=== PATIENT | male | born 1985 | race Caucasian/White ===

== ENCOUNTER 2016-05-09 23:48 | Emergency (ER) | payer OTHER ==
[~2016-05-09 23:48] MED LIST: CEPH-264 PO; HYDR-2762 PO; LISI-334 PO
[2016-05-09 23:53] VITALS: BP 139/82
[2016-05-10] MEDS ORDERED: KETOROLAC TROMETHAMINE 60 MG/2 ML SYRINGE. IM ONE (01:15)
[2016-05-10] MEDS ORDERED: CYCLOBENZAPRINE 10 MG TABLET. PO ONE (01:15)
[2016-05-10] MEDS ORDERED: NAPR375T3 PO (01:47)
[2016-05-10] MEDS ORDERED: CYCL10TA2 PO (01:47)
--- NOTE | 2016-05-10 01:47 | PHYS DOC ---
Past Medical History Past Medical History: Hypertension, Other Additional Past Medical Histor: chronic lt. knee pain (r/t patellar dislocation ) Past Surgical History: Tonsillectomy, Other Additional Past Surgical Histo: rt. arm, rt middle finger Alcohol Use: Occasionally Drug Use: None Adult General Chief Complaint Chief Complaint: LOWER BACK PAIN OR INJURY HPI HPI Patient is a 31 year old male who presents with back pain. Patient reports she was caring a load of shingles knee twisted abnormally, causing him pain in his back. He reports pain in his mid and lower back. He denies any weakness. No loss of bowel or bladder continence. He has not taken anything for symptoms prior to arrival. Review of Systems Review of Systems Constitutional: Denies fever or chills Eyes: Denies change in visual acuity or eye pain HENT: Denies nasal congestion or sore throat Respiratory: Denies cough or shortness of breath Cardiovascular: Denies chest pain GI: Denies abdominal pain, nausea, vomiting, bloody stools or diarrhea : Denies dysuria or hematuria Musculoskeletal: Mid and lower back pain Integument: Denies rash or skin lesions Neurologic: Denies headache, focal weakness Current Medications Current Medications Current Medications Medications (Trade) Dose Ordered Sig/Theresa Start Time Stop Time Status Last Admin Dose Admin Cyclobenzaprine HCl (Flexeril) 10 mg 1X ONCE 05/10/16 01:15 05/10/16 01:16 DC 05/10/16 01:15 10 MG Ketorolac Tromethamine (Toradol Im) 30 mg 1X ONCE 05/10/16 01:15 05/10/16 01:16 DC 05/10/16 01:15 30 MG Allergies Allergies Allergies Coded Allergies Type Severity Reaction Last Updated Verified coconut oil Allergy Intermediate 05/10/16 No Physical Exam Physical Exam Constitutional: Well developed, well nourished, no acute distress, non-toxic appearance HENT: Normocephalic, atraumatic, bilateral external ears normal Eyes: EOMI, conjunctiva normal, no discharge Neck: Normal range of motion, no stridor Cardiovascular: Heart rate normal, regular rhythm, no murmur Lungs & Thorax: Bilateral breath sounds clear to auscultation Abdomen: Bowel sounds normal, soft, non-distended, no TTP Skin: Warm, dry, no erythema, no rash Back: Mid and lower back TTP both midline and to L lateral side; no skin lesion , no stepoff or deformity noted Extremities: No obvious deformity, no edema Neurologic: Alert and oriented X 3, BLE strength and sensation to light touch intact and symmetrical Current Patient Data Vital Signs Vital Signs Date Time Temp Pulse Resp B/P Pulse Ox O2 Delivery O2 Flow Rate FiO2 05/09/16 23:53 97.7 92 14 97 Room Air 97.7 EKG EKG [] Radiology/Procedures Radiology/Procedures X-ray thoracic spine (my read): No acute abnormality X-ray lumbar spine (my read): No acute abnormality Course & Med Decision Making Course & Med Decision Making Pertinent Labs and Imaging studies reviewed. (See chart for details) Patient is 31-year-old male who presents with back pain. Appears to have at least some component of muscle spasm, also possibility of bulging disc. Will obtain x-rays of thoracic and lumbar spine. Toradol and Flexeril ordered for pain control. Imaging without acute abnormality per my read. Discussed results with patient, who is feeling better after meds. Will discharge home with prescription for naproxen and Flexeril. Given instructions for follow-up and return precautions. Dragon Disclaimer Dragon Disclaimer This electronic medical record was generated, in whole or in part, using a voice recognition dictation system. Departure Departure Impression: Primary Impression: Back pain Additional Impression: Muscle spasm of back Disposition: 01 HOME, SELF-CARE Condition: IMPROVED Referrals: LARS GRAFF (PCP) Patient Instructions: Back Pain, Adult, Muscle Cramps Additional Instructions: Thank you for allowing us to provide care today in the Emergency Department. Take the provided medication as directed. Use caution when taking the muscle relaxant as it can make you drowsy. Schedule a follow up appointment with your primary care doctor. Return promptly to the Emergency Department if you develop any new or concerning symptoms. Scripts Cyclobenzaprine Hcl 10 Mg [id number] Mg PO TID PRN MUSCLE SPASMS #12 TAB Prov:VICENTE FIGUEROA MD 05/10/16 Naproxen 375 Mg [id number] Mg PO BID PRN PAIN #20 Prov:VICENTE FIGUEROA MD 05/10/16 Problem Qualifiers VICENTE FIGUEROA MD May 10, 2016 01:47
--- NOTE | 2016-05-10 07:41 | RAD ---
EXAM: Thoracic spine, 3 views. HISTORY: Pain. COMPARISON: None. FINDINGS: Oral, lateral and swimmer's views of the thoracic spine are obtained. There is mild thoracic dextroscoliosis centered at the upper thoracic levels. There is no listhesis. The vertebral bodies are normal in height and the disc spaces are preserved. There is a suspected small Schmorl's node within the upper thoracic superior endplate. IMPRESSION: 1. No acute osseous finding. 2. Mild thoracic dextroscoliosis.
--- NOTE | 2016-05-10 07:42 | RAD ---
EXAM: Lumbar spine, 3 views. HISTORY: Pain. COMPARISON: None. FINDINGS: Frontal, lateral and coned sacral views of the lumbar spine are obtained. There is no listhesis. The vertebral bodies are normal in height and the disc spaces are preserved. IMPRESSION: No acute osseous finding.
== END 2016-05-10 02:00 | disposition home or self-care (01) ==
LOC: ER 23:48
DX: M62.830 Muscle spasm of back (principal); M54.5 Low back pain; M54.6 Pain in thoracic spine; G89.29 Other chronic pain; I10 Essential (primary) hypertension; Z91.048 Other nonmedicinal substance allergy status
CPT/HCPCS: 72072; 72100; 96372; 99284; J1885

== ENCOUNTER → 2017-07-09 | Outpatient (CLI) | payer OTHER | END | disposition home or self-care (01) | LOC: ECHO 12:31 | DX: R00.2 Palpitations (principal); I10 Essential (primary) hypertension | CPT/HCPCS: 93017; 93350 ==

== ENCOUNTER 2017-10-20 15:55 | Emergency (ER) | payer OTHER ==
[~2017-10-20] VITALS: Ht 175.3 cm; Wt 72.6 kg
[~2017-10-20 15:55] MED LIST changes: +CYCL10TA2 PO; +HYDR-971 PO; +IBUP-1060 PO; +NAPR-695 PO
--- NOTE | 2017-10-20 17:21 | PHYS DOC ---
Past Medical History Past Medical History: Hypertension, Other Additional Past Medical Histor: chronic lt. knee pain (r/t patellar dislocation ) Past Surgical History: Tonsillectomy, Other Additional Past Surgical Histo: rt. arm, rt middle finger Alcohol Use: Occasionally Drug Use: None Adult General Chief Complaint Chief Complaint: HEAD, FACE, NECK, TRAUMA HPI HPI Patient is a 32 year old male who presents with pain and swelling to his right lower jaw. The patient was helping his friend trim trees 2 days ago when a limb struck him in the jaw. He states that he has had increased pain and swelling since that time and is now having trouble even eating mashed potatoes. He has been using ibuprofen with little relief. The patient denies loss of consciousness or other injury. Review of Systems Review of Systems Constitutional: Denies fever or chills [] Eyes: Denies change in visual acuity, redness, or eye pain [] HENT: See history of present illness Respiratory: Denies cough or shortness of breath [] Cardiovascular: No additional information not addressed in HPI [] Neurologic: Denies headache, focal weakness or sensory changes [] Endocrine: Denies polyuria or polydipsia [] All other systems were reviewed and found to be within normal limits, except as documented in this note. Current Medications Current Medications Current Medications Medications (Trade) Dose Ordered Sig/Theresa Start Time Stop Time Status Last Admin Dose Admin Clindamycin Phosphate 50 ml @ 100 mls/hr 1X ONCE 10/20/17 19:00 10/20/17 19:29 DC 10/20/17 19:20 100 MLS/HR Morphine Sulfate (Morphine Sulfate) 5 mg 1X ONCE 10/20/17 19:15 10/20/17 19:16 DC 10/20/17 19:23 5 MG Oxycodone/ Acetaminophen (Percocet 5/325) 1 tab 1X ONCE 10/20/17 17:45 10/20/17 17:48 DC 10/20/17 17:50 1 TAB Sodium Chloride 1,000 ml @ 1,000 mls/hr 1X ONCE 10/20/17 19:00 10/20/17 19:59 DC 10/20/17 19:22 1,000 MLS/HR Allergies Allergies Allergies Coded Allergies Type Severity Reaction Last Updated Verified coconut oil Allergy Intermediate 05/10/16 No Physical Exam Physical Exam Constitutional: Well developed, well nourished, no acute distress, non-toxic appearance. [] HENT: Normocephalic, moderate edema to the right mid lower jaw with pain with palpation, bilateral external ears normal, oropharynx moist, no oral exudates, nose normal. [] Eyes: PERRLA, EOMI, conjunctiva normal, no discharge. [] Neck: Normal range of motion, no tenderness, supple, no stridor. [] Cardiovascular:Heart rate regular rhythm, no murmur [] Lungs & Thorax: Bilateral breath sounds clear to auscultation [] Neurologic: Alert and oriented X 3, normal motor function, normal sensory function, no focal deficits noted. [] Psychologic: Affect normal, judgement normal, mood normal. [] Current Patient Data Vital Signs Vital Signs Date Time Temp Pulse Resp B/P (MAP) Pulse Ox O2 Delivery O2 Flow Rate FiO2 10/20/17 19:28 75 16 152/91 (111) 98 10/20/17 16:17 98.8 Room Air 98.8 EKG EKG [] Radiology/Procedures Radiology/Procedures []PATIENT: MILTON SIDHU SACCOUNT: [id number]#: [id number] : 1985 LOCATION: ER AGE: 32 SEX: M EXAM STATUS: REG ER ORD. PHYSICIAN: SLICK JACOB APRN REASON: hit by tree limb in right jaw two days ago, pain and swelling PROCEDURE: CT MAXILLOFACIAL WO CONTRAST CT face without contrast History: Hit by tree in right jaw 2 days ago. Pain and swelling Technique: CT of the face was performed without intravenous contrast. Axial, sagittal, and coronal reconstructions were obtained. Exposure: One or more of the following individualized dose reduction techniques were utilized for this examination: 1. Automated exposure control 2. Adjustment of the mA and/or kV according to patient size 3. Use of iterative reconstruction technique Findings: No acute nasal bone fracture is identified. Bilateral orbits and orbital contents appear intact. Metallic jewelry is seen involving the soft tissues superficial to the anterior mandible. Moderately comminuted fractures are seen involving the right mandible. Fracture lines include oblique fracture line involving the right mandibular ramus extending to the posterior base of the condylar process. Additional, obliquely oriented fracture seen involving the anterior mandibular ramus. Comminuted fracture lines are also seen involving the lateral aspect of the right mandibular body. The comminuted fracture fragments demonstrate up to 4 mm of displacement. One fracture lines can be seen extending fracture lines can be seen to extend to the bases of the teeth #29 and 30. There is associated soft tissue swelling and hematoma superficial to the right mandibular fractures. Right frontal sinus is minimally developed and completely opacified. The left frontal sinus is hypoplastic and demonstrates moderate opacification. There is moderate-severe opacification of ethmoid air cells. Moderate mucosal disease involves the sphenoid sinus. Moderate bilateral maxillary sinus mucosal disease is seen. Impression: 1. Acute, moderately comminuted fractures involving the right mandibular body and ramus. Fracture fragments demonstrate up to about 4 mm of displacement. Fracture lines are also thought to extend to the bases of the teeth #29 and 30. 2. Associated right facial soft tissue swelling. 3. Paranasal sinus disease. Electronically signed by: Nitesh Kruger MD (10/20/2017 5:18 PM) [place] [id number] DICTATED and SIGNED BY: NITESH KRUGER MD DATE: 10/20/17 1985 Course & Med Decision Making Course & Med Decision Making Pertinent Labs and Imaging studies reviewed. (See chart for details) []Dr. Azevedo with maxillofacial surgery was consulted in the care of this patient. He suggested transfer to . transfer team was called and Dr. Polanco accepted care of this patient for trauma admission. The patient was given clindamycin in the emergency department as well as Percocet and morphine IV. His CT scan was clouded to . The patient was transferred to via EMS. Dragon Disclaimer Dragon Disclaimer This electronic medical record was generated, in whole or in part, using a voice recognition dictation system. Departure Departure Impression: Primary Impression: Multiple mandibular fracture sites, open Disposition: 05 TRANSFER OTHER Condition: GOOD Referrals: YING TRISTAN (PCP) SLICK JACOB APRN Oct 20, 2017 17:21
[2017-10-20] MEDS ORDERED: oxyCODONE/APAP 5/325 1 TAB TABLET PO ONE (17:45)
[2017-10-20] MEDS ORDERED: IV NORMAL SALINE 1000ML BAG 1,000 ML IV ONE (19:00)
[2017-10-20] MEDS ORDERED: CLINDAMYCIN 900MG PREMIX 50 ML IV ONE (19:00)
[2017-10-20] MEDS ORDERED: MORPHINE SULFATE 10 MG/ML VIAL. IV ONE (19:15)
[2017-10-20 19:28] VITALS: BP 152/91
== END 2017-10-20 20:45 | disposition short-term general hospital (02) ==
LOC: ER 15:55
DX: S02.69XB Fracture of mandible of other specified site, initial encounter for open fracture (principal); I10 Essential (primary) hypertension; G89.29 Other chronic pain; Z88.8 Allergy status to other drugs, medicaments and biological substances; W51.XXXA Accidental striking against or bumped into by another person, initial encounter; Y93.H2 Activity, gardening and landscaping; Y92.89 Other specified places as the place of occurrence of the external cause; Y99.8 Other external cause status
CPT/HCPCS: 70486; 96365; 96375; 99285; J2270; J3490; J7030